=== PATIENT | female | born 1940 | race Caucasian/White ===

== ENCOUNTER 2022-05-06 14:30 | Emergency (ER) | payer MEDICARE, SELFPAY ==
[2022-05-06 14:31] VITALS: BP 159/86; PULSE 84; RESP 16; TEMP 35.9; O2SAT 96; BMI 35.2
--- NOTE | 2022-05-06 14:38 | CT_ITS ---
STUDY: CT BRAIN WITHOUT CONTRAST REASON FOR EXAM: Female, 81 years old. An injury due to a fall. RADIATION DOSAGE (If Supplied By Facility): CTDIvol = ( 44.99 ) mGy, DLP = ( 812.98 ) mGycm TECHNIQUE: Transaxial CT imaging of the brain was performed without administration of intravenous contrast material. Individualized dose optimization techniques were used for this CT. COMPARISON: No relevant priors. FINDINGS: Normal soft tissue structures. There is hyperostosis frontalis internus. There is mild cerebral atrophy with widening of the extra-axial spaces and ventricular dilatation. There are areas of decreased attenuation within the white matter tracts of the supratentorial brain, consistent with microvascular disease changes. Normal basal ganglia and thalami. Normal brainstem. Normal cerebellum. There is no intracranial hemorrhage. There are no findings of an acute ischemic infarction. Normal visualized paranasal sinuses. CT/Brain/Head without Contrast IMPRESSION: Chronic involutional changes of the brain. Electronically Signed: Ney Blackwell MD at 15:42 EDT ,
--- NOTE | 2022-05-06 14:38 | CT_ITS ---
STUDY: CT CERVICAL SPINE WITHOUT CONTRAST REASON FOR EXAM: Female, 81 years old. Neck pain following a fall. RADIATION DOSAGE (If Supplied By Facility): CTDIvol = ( 24.31 ) mGy, DLP = ( 517.57 ) mGycm TECHNIQUE: High resolution transaxial imaging was performed without contrast material. Sagittal and coronal images were reconstructed. Individualized dose optimization techniques were used for this CT. COMPARISON: None FINDINGS: Normal craniovertebral junction. There are degenerative changes of the anterior atlantoaxial articulation. Normal odontoid process. There is straightening of the normal cervical lordosis. Normal vertebral bodies and posterior osseous elements. C2-3: Minimal degree of anterior listhesis of C2 on C3 most likely secondary to the facet joint osteoarthritis and hypertrophy on the left side. C3-4: Mild degree of disc space narrowing. 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 Uncovertebral arthrosis. Bilateral neural foraminal stenosis worse on the left. C4-5: Moderate degree of disc space narrowing. Spondylosis. Uncovertebral arthrosis. Moderate degree of bilateral neural foraminal stenosis. C5-6: Moderate degree of disc space narrowing. Uncovertebral arthrosis. Moderate degree of bilateral neural foraminal stenosis. C6-7: Disc space narrowing. Uncovertebral arthrosis with moderate degree of bilateral neural foraminal stenosis worse on the right side. C7-T1: Normal endplates. Normal disc height and morphology. Normal central canal and intervertebral neuroforamina. Atherosclerotic calcification of the carotid bifurcations. CT/Spine Cervical without Contras IMPRESSION: Multilevel degenerative changes, as described above. Electronically Signed: Ney Blackwell MD at 15:43 EDT ,
--- NOTE | 2022-05-06 14:39 | EX.ED.DYSGE1 ---
HPI History of Present Illness Chief Complaint: Lower Extremity Injury Informant: patient and spouse/S.O. Narrative Narrative: Brought in by EMS for evaluation mechanical fall parking lot of [employer]. Unlevel concrete, fell down hitting right knee right elbow back of the head. No loss of conscious. Takes baby aspirin. Mild headache. No nausea or vomiting. Was able to stand and weight-bear. No hip pain. No back chest or abdominal pain. Tetanus unknown. Prior similar symptoms: No PFSH PFSH Medical History (Updated 05/06/22 @ 16:[address] Stephan Tadeo DO) Atrial fibrillation Hypertension Allergy/AdvReac Type Severity Reaction Status Date / Time No Known Allergies Allergy Verified 05/06/22 14:33 Surgical History (Updated 05/06/22 @ 15:22 by Eliza Higuera) History of hysterectomy Social History Smoking Status: Never smoker ROS ROS ED Constitutional Constitutional ED: Denies chills, fever(s) or sweats Eyes Eyes: Denies change in vision ENT ENT ED: Denies dysphagia or sore throat Cardiovascular Cardiovascular: Denies chest pain, leg edema, palpitations or racing heartbeat Respiratory/Chest Respiratory/Chest: Denies cough, dyspnea or dyspnea on exertion Gastrointestinal Gastrointestinal: Denies abdominal pain, diarrhea, nausea or vomiting Genitourinary Genitourinary ED: Denies dysuria, hematuria or urinary frequency Musculoskeletal Musculoskeletal: Denies back pain, extremity pain or neck pain Integumentary Reports Abrasions and wounds; Denies rash Neurologic Neurologic: Reports headache(s); Denies paresthesias or weakness EXAM Physical Exam Const Vital Signs: 05/06/22 14:31 Temperature 96.7 F L Temperature Source Temporal Pulse Rate 84 Respiratory Rate 16 Blood Pressure 159/86 H Blood Pressure Mean 110 Pulse Ox 96 Oxygen Delivery Method Room Air Positive well nourished and well developed Constitutional Narrative: GCS 15. General Appearance ED: well developed and NAD HEENT Reports moist mucous membranes HEENT Narrative: Scalp hematoma right crown, no laceration small abrasions. No hemotympanums. normocephalic Eyes PERRL, EOMs intact bilaterally and conjunctivae normal General Eye ED: Yes normal appearance of both eyes Neck no lymphadenopathy and supple Neck Narrative: No midline tenderness no step-offs General: Negative for tenderness Chest Wall Chest: Negative for tenderness Resp normal respiratory effort and normal air movement Effort and Inspection: symmetric chest movement; Negative for respiratory distress Cardio regular rate, regular rhythm and no murmurs Peripheral Pulses: pulses 2+ throughout GI normal to inspection, nondistended, normoactive bowel sounds and non-tender Palpation: Negative for guarding or rebound tenderness present Back/Spine no CVA tenderness and no thoracic nor lumbar tenderness Back/Spine Narrative: No ecchymosis or abrasions. Extremity Extremity Narrative: Right upper extremity: Full range shoulder elbow and wrist no deformity there is abrasion noted at the elbow with no active bleeding. Neuro vas intact distally. Left upper extremity: Full range of motion nontender no deformities neuro vas intact distally. Right lower extremity: Negative logroll knee extensor mechanism intact is abrasion at the patellar no bony tenderness no deformities. Negative varus and valgus. No ankle tenderness. Neuro vas intact distally. Left lower extremity: Negative logroll no hip knee or ankle tenderness neuro vas intact distally. General Extremety ED: Negative for edema or tenderness General Extremity: Negative for edema Neuro oriented x3, CN's II-XII intact bilaterally and no sensory deficits noted Sensorium / Orientation: awake and alert Skin no rashes or lesions noted and no wounds MDM MDM MDM Narrative Medical decision making narrative: Patient scalp contusion from head injury. Abrasions right elbow and right knee. Tetanus is updated. Trauma scan head and neck was obtained per radiology negative. X-ray right elbow 3 views reviewed by myself and read by radiology negative for any fracture or dislocation. Right knee 4 views reviewed by myself read by radiology negative for any fracture or dislocation. Abrasions were cleansed and dressed by nursing. She is able to ambulate in the department. She declined any pain medicines. Concussion precautions discussed with her head injury and headache symptoms. She will follow-up as an outpatient. All questions were answered. Radiography Diagnostic Testing: Clinical Impression(s) from Imaging Studies Brain CT 05/06/22 14:38 IMPRESSION: Chronic involutional changes of the brain. Electronically Signed: Ney Blackwell MD at 15:42 EDT , Cervical Spine CT 05/06/22 14:38 IMPRESSION: Multilevel degenerative changes, as described above. Electronically Signed: Ney Blackwell MD at 15:43 EDT , Elbow X-Ray 05/06/22 15:35 IMPRESSION: Mild degenerative changes of the elbow without fracture or dislocation. Electronically Signed: Amadou Altamirano DO at 16:56 EDT , Knee X-Ray 05/06/22 15:35 IMPRESSION: Mild degenerative changes without acute fracture or dislocation. Electronically Signed: Amadou Altamirano DO at 16:54 EDT Reading Location ID and State: [facility] / [place] Tel [phone], Service support , Discharge Plan Triage Chief Complaint: Lower Extremity Injury ED Provider: Stephan Tadeo Dx/Rx/DC Orders Clinical Impression: Hematoma of scalp, CHI (closed head injury), Concussion without loss of consciousness, initial encounter, Abrasion of elbow, right, Abrasion of knee, right, Tetanus toxoid vaccination administered at current visit Instructions: ED Abrasion, ED Concussion, ED Scalp Contusion Primary Care Provider: BETTIE SCHAFFER Referrals: BETTIE SCHAFFER MD [Primary Care Provider] - 1 Week NOT,DEFINED [Non-Staff] - Activity Restrictions/Additional Instructions: CT head and neck negative. X-ray right elbow right knee also negative. Tylenol 1 g every 6 hours as needed. Follow-up with your doctor. Disposition Disposition: Home, Self Care
[2022-05-06] MEDS: Diphth,Pertuss(Acell),Tet Vac 0.5 ML Vial IM (15:11)
--- NOTE | 2022-05-06 15:35 | RAD_ITS ---
INDICATION: Injury. Fall onto right side. EXAMINATION/TECHNIQUE: X-RAY - RIGHT XR Knee Complete 4 Views or More 4 VIEWS COMPARISON: None. FINDINGS: SOFT TISSUES: No soft tissue swelling or gas. No radiopaque foreign body. BONES/JOINTS: No acute fracture or subluxation.. Normal alignment. Mild narrowing of the lateral femoral-tibial space and patellofemoral space.. No sclerotic or destructive changes observed. No joint effusion. RAD/Knee 4 or More Views IMPRESSION: Mild degenerative changes without acute fracture or dislocation. Electronically Signed: Amadou Altamirano DO at 16:54 EDT ,
--- NOTE | 2022-05-06 15:35 | RAD_ITS ---
STUDY: X-RAY - RIGHT ELBOW REASON FOR EXAM: Female, 81 years old. Injury. Fall onto right side. Pain. TECHNIQUE: 4 view(s) of the elbow. COMPARISON: None. FINDINGS: Normal right humerus, ulna and radius. There are mild degenerative changes of the radiocapitellar and ulna trochlear articulations. No acute fracture or dislocation. The soft tissue structures are unremarkable. RAD/Elbow min 3 Views IMPRESSION: Mild degenerative changes of the elbow without fracture or dislocation. Electronically Signed: Amadou Altamirano DO at 16:56 EDT ,
== END 2022-05-06 17:14 | disposition home or self-care (01) ==
PROVIDERS: Emergency Provider Emergency Medicine; PCP Internal Medicine; Visit Provider Emergency Medicine
DX: S06.0X0A Concussion without loss of consciousness, initial encounter (principal); S80.211A Abrasion, right knee, initial encounter; I10 Essential (primary) hypertension; S50.311A Abrasion of right elbow, initial encounter; S00.01XA Abrasion of scalp, initial encounter; W01.10XA Fall on same level from slipping, tripping and stumbling with subsequent striking against unspecified object, initial encounter; Y92.481 Parking lot as the place of occurrence of the external cause; Z23 Encounter for immunization
CPT/HCPCS: 70450; 72125; 73080; 73564; 90471; 90715; 99284